=== PATIENT | male | born 1960 | race African-American/Black ===

== ENCOUNTER 2017-11-04 20:55 | Inpatient (IN) | payer MEDICARE, MEDICAID ==
[~2017-11-04] VITALS: Ht 193 cm; Wt 98.9 kg
[2017-11-04 19:30] VITALS: BP_SYST 147; BP_DIAS 59; BP_DIAS 69
[2017-11-04 20:00] VITALS: BP 147/59
[~2017-11-04 20:55] MED LIST: AZEL205. BOTHNSTRLS; BUDE6HFA INH; DIAZ10TA4 PO; DOXY100C2 PO; LIDO700A30 TP; METH10TA16 PO; MIRT-91 PO; OMEP20CA10 PO; OXYC30TA89 PO; TIZA6CAP7 PO; [UNRECOGNIZED DRUG - CODE] PO
[2017-11-04] MEDS ORDERED: BENZONATATE 100MG CAPSULE PO PRN (21:30)
[2017-11-04] MEDS ORDERED: IPRATROPIUM/ALBUTEROL 0.5-3(2.5)MG/3ML NEB HHN PRN (21:30)
[2017-11-04] MEDS ORDERED: ALPRAZOLAM 0.5 MG TABLET PO PRN (21:30)
[2017-11-04] MEDS ORDERED: LORAZEPAM 2MG/ML CPJ IV PRN (21:30)
[2017-11-04] MEDS: GABAPENTIN 100MG CAPSULE PO SCH (22:17)
[2017-11-04] MEDS: OXYCODONE HCL 5MG TABLET PO SCH (22:17)
[2017-11-04] MEDS: IPRATROPIUM/ALBUTEROL 0.5-3(2.5)MG/3ML NEB HHN SCH (22:30)
[2017-11-04] MEDS: TIZANIDINE HCL 4MG TABLET PO SCH (23:01)
[2017-11-05] MEDS: GABAPENTIN 100MG CAPSULE PO SCH ×3 (06:09→21:24)
[2017-11-05] MEDS: TIZANIDINE HCL 4MG TABLET PO SCH ×3 (06:10→21:23)
[2017-11-05] MEDS: BUDESONIDE 0.5MG/2ML NEB HHN SCH ×2 (07:21→21:06)
[2017-11-05] MEDS: IPRATROPIUM/ALBUTEROL 0.5-3(2.5)MG/3ML NEB HHN SCH ×3 (07:23→21:06)
[2017-11-05 08:30] VITALS: BP 123/84
[2017-11-05] MEDS: OXYCODONE HCL 5MG TABLET PO SCH ×4 (09:15→21:24)
[2017-11-05] MEDS: FAMOTIDINE 20MG TABLET PO SCH ×2 (09:16→21:25)
[2017-11-05] MEDS: METHYLPHENIDATE HCL 5MG TABLET PO SCH ×2 (09:18→17:15)
[2017-11-05] MEDS: DICLOFENAC SODIUM 50MG EC TABLET PO SCH (09:18)
[2017-11-05] MEDS: DOXYCYCLINE HYCLATE 100MG CAPSULE PO SCH ×2 (09:18→21:24)
[2017-11-05] MEDS ORDERED: BISACODYL 5MG TABLET PO PRN (13:45)
[2017-11-05] MEDS: LACTULOSE 20G/30ML UDC PO PRN (14:27)
[2017-11-05] MEDS: DOCUSATE SODIUM 100MG CAPSULE PO SCH ×2 (14:27→17:14)
[2017-11-05 20:00] VITALS: BP 150/96
[2017-11-06] MEDS: IPRATROPIUM/ALBUTEROL 0.5-3(2.5)MG/3ML NEB HHN SCH ×4 (02:26→21:15)
[2017-11-06] MEDS: TIZANIDINE HCL 4MG TABLET PO SCH ×3 (05:48→21:43)
[2017-11-06] MEDS: GABAPENTIN 100MG CAPSULE PO SCH ×3 (05:48→21:42)
[2017-11-06] MEDS: BUDESONIDE 0.5MG/2ML NEB HHN SCH ×2 (07:46→21:15)
[2017-11-06] MEDS: METHYLPHENIDATE HCL 5MG TABLET PO SCH ×2 (08:18→17:13)
[2017-11-06] MEDS: DOCUSATE SODIUM 100MG CAPSULE PO SCH ×2 (08:18→17:13)
[2017-11-06] MEDS: DOXYCYCLINE HYCLATE 100MG CAPSULE PO SCH ×2 (08:18→21:42)
[2017-11-06] MEDS: DICLOFENAC SODIUM 50MG EC TABLET PO SCH (08:18)
[2017-11-06] MEDS: FAMOTIDINE 20MG TABLET PO SCH ×2 (08:19→21:43)
[2017-11-06] MEDS: OXYCODONE HCL 5MG TABLET PO SCH ×4 (08:19→21:46)
[2017-11-06 08:29] VITALS: BP 123/84
[2017-11-06] MEDS ORDERED: BISACODYL 5MG TABLET PO PRN (10:45)
[2017-11-06] MEDS ORDERED: LACTULOSE 20G/30ML UDC PO PRN (10:45)
[2017-11-06] MEDS: MORPHINE SULFATE 4 MG/ML CPJ (NOT FOR IM USE) IV PRN (11:52)
[2017-11-06] MEDS ORDERED: SODIUM CHLORIDE 45ML SPRAY NS PRN (12:00)
[2017-11-06] MEDS ORDERED: LORAZEPAM 2MG/ML CPJ IV PRN (15:30)
[2017-11-06] MEDS: LACTULOSE 20G/30ML UDC PO PRN (17:14)
[2017-11-06 20:00] VITALS: BP 147/94
[2017-11-06] MEDS: ALPRAZOLAM 0.5 MG TABLET PO PRN (23:52)
[2017-11-07] MEDS: IPRATROPIUM/ALBUTEROL 0.5-3(2.5)MG/3ML NEB HHN SCH ×4 (01:08→21:02)
[2017-11-07] MEDS: TIZANIDINE HCL 4MG TABLET PO SCH ×3 (06:29→23:20)
[2017-11-07] MEDS: GABAPENTIN 100MG CAPSULE PO SCH ×3 (06:29→23:20)
[2017-11-07] MEDS: BUDESONIDE 0.5MG/2ML NEB HHN SCH ×2 (07:41→21:02)
[2017-11-07 08:00] VITALS: BP 124/84
[2017-11-07] MEDS: MORPHINE SULFATE 4 MG/ML CPJ (NOT FOR IM USE) IV PRN (08:28)
[2017-11-07 08:41] LABS: BASOPHILS % 0.8 % (0.0-2.0); EOSINOPHILS % 3.2 % (0.0-5.0); HEMATOCRIT. 44.6 % (42.0-52.0); HEMOGLOBIN. 15.2 g/dL (14.0-18.0); LYMPHOCYTES % 21.6 % (20.0-50.0); MEAN CORPUSCULAR HEMOGLOBIN 30.9 pg (28.0-32.0); MEAN PLATELET VOLUME 7.9 fl (7.4-10.4); NEUTROPHILS % 65.4 % (40.0-76.0); PLATELET 194 x1000/uL (130-400)
[2017-11-07 09:13] LABS: CHLORIDE 105 mEq/L (98-107)
[2017-11-07] MEDS: METHYLPHENIDATE HCL 5MG TABLET PO SCH ×2 (09:35→17:17)
[2017-11-07] MEDS: DOCUSATE SODIUM 100MG CAPSULE PO SCH ×2 (09:36→17:17)
[2017-11-07] MEDS: DICLOFENAC SODIUM 50MG EC TABLET PO SCH (09:36)
[2017-11-07] MEDS: FAMOTIDINE 20MG TABLET PO SCH ×2 (09:36→20:41)
[2017-11-07] MEDS: DOXYCYCLINE HYCLATE 100MG CAPSULE PO SCH ×2 (09:37→20:41)
[2017-11-07] MEDS: OXYCODONE HCL 5MG TABLET PO SCH ×4 (09:37→20:44)
[2017-11-07] MEDS: POLYETHYLENE GLYCOL 3350 (17GM) 1 DOSE PACK PO SCH (13:42)
[2017-11-07] MEDS ORDERED: LORAZEPAM 2MG/ML CPJ IV PRN (13:45)
[2017-11-07] MEDS ORDERED: FLUOXETINE HCL 10 MG CAPSULE PO SCH (13:45)
[2017-11-07 20:00] VITALS: BP 139/110
[2017-11-07] MEDS ORDERED: QUETIAPINE FUMARATE 25MG TABLET PO SCH (21:00)
[2017-11-08] MEDS: IPRATROPIUM/ALBUTEROL 0.5-3(2.5)MG/3ML NEB HHN SCH ×3 (02:15→13:17)
[2017-11-08] MEDS: TIZANIDINE HCL 4MG TABLET PO SCH ×2 (05:40→14:13)
[2017-11-08] MEDS: GABAPENTIN 100MG CAPSULE PO SCH ×2 (05:40→14:13)
[2017-11-08 08:00] VITALS: BP 136/101
[2017-11-08] MEDS: DOXYCYCLINE HYCLATE 100MG CAPSULE PO SCH (08:54)
[2017-11-08] MEDS: OXYCODONE HCL 5MG TABLET PO SCH ×2 (08:54→12:31)
[2017-11-08] MEDS: DOCUSATE SODIUM 100MG CAPSULE PO SCH (08:55)
[2017-11-08] MEDS: DICLOFENAC SODIUM 50MG EC TABLET PO SCH (08:55)
[2017-11-08] MEDS: FAMOTIDINE 20MG TABLET PO SCH (08:55)
[2017-11-08] MEDS: METHYLPHENIDATE HCL 5MG TABLET PO SCH (08:56)
[2017-11-08] MEDS: ALPRAZOLAM 0.5 MG TABLET PO PRN (08:57)
[2017-11-08] MEDS: POLYETHYLENE GLYCOL 3350 (17GM) 1 DOSE PACK PO SCH (08:57)
[2017-11-08 12:52] VITALS: BP 136/101
== END 2017-11-08 14:43 | disposition home health service (06) | DRG 947 ==
PROVIDERS: ADMIT Psychiatry & Neurology Neurology; ATTEND Internal Medicine Critical Care Medicine
DX: R53.81 Other malaise (principal); J96.01 Acute respiratory failure with hypoxia; F33.1 Major depressive disorder, recurrent, moderate; J44.9 Chronic obstructive pulmonary disease, unspecified; Z87.820 Personal history of traumatic brain injury; R26.9 Unspecified abnormalities of gait and mobility; M79.609 Pain in unspecified limb; K59.00 Constipation, unspecified; G47.00 Insomnia, unspecified; G89.4 Chronic pain syndrome; I10 Essential (primary) hypertension; G62.9 Polyneuropathy, unspecified; M79.7 Fibromyalgia; R47.1 Dysarthria and anarthria; J06.9 Acute upper respiratory infection, unspecified; J32.9 Chronic sinusitis, unspecified; R29.6 Repeated falls; R53.1 Weakness; J30.9 Allergic rhinitis, unspecified; F98.5 Adult onset fluency disorder; M54.31 Sciatica, right side; F41.9 Anxiety disorder, unspecified; M54.32 Sciatica, left side; Z88.6 Allergy status to analgesic agent; Z88.8 Allergy status to other drugs, medicaments and biological substances; Z91.018 Allergy to other foods; S06.9X0S Unspecified intracranial injury without loss of consciousness, sequela; V89.2XXS Person injured in unspecified motor-vehicle accident, traffic, sequela; Z79.899 Other long term (current) drug therapy; Z79.51 Long term (current) use of inhaled steroids
CPT/HCPCS: 36415; 80048; 85025; 92523; 93970; 94640; 97110; 97116; 97127; 97162; 97166; 97530; 97535; J2270; J7620; J7626

== ENCOUNTER → 2018-05-22 | Outpatient (CLI) | payer MEDICARE, MEDICAID ==
[~2018-05-22] MED LIST changes: -DIAZ10TA4 PO; -DOXY100C2 PO; -METH10TA16 PO
== END | disposition home or self-care (01) ==
LOC: CT 10:19
PROVIDERS: ATTEND Internal Medicine Critical Care Medicine
DX: K76.89 Other specified diseases of liver (principal)
CPT/HCPCS: 73030; 74176

== ENCOUNTER → 2018-10-01 | Outpatient (CLI) | payer MEDICARE, MEDICAID ==
[~2018-10-01] MED LIST changes: +BISA-81 PO; +BISA10SU8 RC; +CLOB15CR4 TP; +CYAN5000 IM; +DIAZ10TA PO; +DIAZ10TA4 PO; +DICL100T83 PO; +DOCU250C69 PO; +FLUT16SP15 NS; +MELA10TA PO; +MELA10TA2 PO; +MELO-106 PO; +METH10TA4 PO; +MORP10CA8 PO; -OMEP20CA10 PO; +OMEP20CA5 PO; +ONDA4TAB50 PO; +OXYC15TA88 PO; +PROM6.254 PO; +QUET25TA34 PO; -[UNRECOGNIZED DRUG - CODE] PO
[2018-10-01 12:08] LABS: BASOPHILS % 1.1 % (0.0-2.0); EOSINOPHILS % 3.1 % (0.0-5.0); HEMATOCRIT. 44.2 % (42.0-52.0); HEMOGLOBIN. 14.7 g/dL (14.0-18.0); LYMPHOCYTES % 15.1 % (20.0-50.0); MEAN CORPUSCULAR HEMOGLOBIN 30.8 pg (28.0-32.0); MEAN CORPUSCULAR VOLUME 92.5 fL (80.0-94.0); MEAN PLATELET VOLUME 7.6 fl (7.4-10.4); MONOCYTES % 6.4 % (2.0-8.0); NEUTROPHILS % 74.3 % (40.0-76.0); PLATELET 200 x1000/uL (130-400); RED BLOOD CELL COUNT 4.78 mill/uL (4.7-6.1); RED CELL DISTRIBUTION WIDTH 14.5 % (11.6-14.6)
[2018-10-01 12:16] LABS: CHLORIDE 108 mEq/L (98-107)
[2018-10-01 12:27] LABS: CLARITY URINE CLEAR (CLEAR); COLOR URINE YELLOW (YELLOW); KETONES URINE NEGATIVE (NEGATIVE); LEUKOCYTE ESTERASE URINE NEGATIVE (NEGATIVE); NITRITE URINE NEGATIVE (NEGATIVE); OCCULT BLOOD URINE NEGATIVE (NEGATIVE); PROTEIN URINE NEGATIVE (NEGATIVE); SPECIFIC GRAVITY URINE 1.015 (1.005-1.030); UROBILINOGEN URINE 0.2 E.U./dL (0.2-1.0)
[2018-10-01 12:50] LABS: PARTIAL THROMBOPLASTIN TIME 31.5 sec (23.4-31.0); PROTHROMBIN TIME 10.5 sec (9.6-11.0)
== END | disposition home or self-care (01) ==
LOC: LAB 11:28
PROVIDERS: ATTEND Internal Medicine Critical Care Medicine
DX: Z01.818 Encounter for other preprocedural examination (principal)
CPT/HCPCS: 36415

== ENCOUNTER 2018-10-02 05:26 | Day surgery (SDC) | payer MEDICARE, MEDICAID ==
[~2018-10-02] VITALS: Ht 182.9 cm; Wt 90.7 kg
[~2018-10-02 05:26] MED LIST changes: -DIAZ10TA PO; -MELO-106 PO
[2018-10-02] MEDS ORDERED: LACTATED RINGERS 1,000 ML IV SCH (05:30)
[2018-10-02] MEDS ORDERED: BUPIVACAINE HCL/PF 0.5% (5MG/ML) 10ML ONE ×2 (06:38→09:21)
[2018-10-02] MEDS ORDERED: BUPIVACAINE/EPINEPH/PF 0.25%/0.0005 10ML ONE (07:10)
[2018-10-02] MEDS ORDERED: EPINEPHRINE 1:1000 1 MG/ML AMP ONE (07:11)
[2018-10-02] MEDS ORDERED: PROPOFOL 200MG/20ML VIAL IV ONE ×2 (07:32→07:58)
[2018-10-02] MEDS ORDERED: MIDAZOLAM HCL 2 MG/2 ML VIAL ONE (07:32)
[2018-10-02] MEDS ORDERED: HYDROMORPHONE HCL/PF 2MG/ML (OR) ONE (07:34)
[2018-10-02] MEDS ORDERED: LIDOCAINE HCL/EPINEPHRINE 1%-EPI 1:100,000 20 ML VIAL ONE (07:35)
[2018-10-02] MEDS ORDERED: ROCURONIUM BROMIDE 10MG/ML VIAL 5ML IV ONE (07:55)
[2018-10-02] MEDS ORDERED: CEFAZOLIN SODIUM 1000MG/VIAL ONE (08:10)
[2018-10-02] MEDS ORDERED: PHENYLEPHRINE HCL 10 MG/ML 1ML (IV VIAL) IV ONE (08:15)
[2018-10-02] MEDS ORDERED: SODIUM CHLORIDE 0.9% 10ML VIAL ONE (08:15)
[2018-10-02] MEDS ORDERED: LIDOCAINE HCL/PF 1% 10 MG/ML 5ML VIAL ONE (08:21)
[2018-10-02] MEDS ORDERED: ONDANSETRON HCL 4MG/2ML INJ ONE (08:21)
[2018-10-02] MEDS ORDERED: DEXAMETHASONE 4MG/ML 1ML VIAL ONE (08:21)
[2018-10-02] MEDS ORDERED: NEOSTIGMINE METHYLSULFATE 1MG/ML 10 ML VIAL ONE (08:33)
[2018-10-02] MEDS ORDERED: GLYCOPYRROLATE 0.2 MG/ML 2ML VIAL ONE ×2 (08:33→08:46)
[2018-10-02] MEDS ORDERED: METOCLOPRAMIDE HCL 10MG/2ML VIAL ONE (08:36)
[2018-10-02] MEDS ORDERED: ONDANSETRON HCL 4MG/2ML INJ IV PRN (10:00)
[2018-10-02] MEDS ORDERED: TRIAMCINOLONE ACETONIDE 40MG/ML 1ML VIAL IM ONE (10:00)
[2018-10-02] MEDS ORDERED: MEPERIDINE HCL/PF 25MG/ML CPJ IV PRN (10:00)
[2018-10-02] MEDS ORDERED: LORAZEPAM 2MG/ML CPJ IV NR (10:00)
[2018-10-02] MEDS ORDERED: BUPIVACAINE HCL/PF 0.5% (5MG/ML) 10ML INFIL ONE (10:00)
[2018-10-02] MEDS ORDERED: LIDOCAINE HCL 1% 20ML VIAL (Pyxis) INJ INFIL ONE (10:00)
[2018-10-02] MEDS: HYDROMORPHONE HCL/PF 2MG/ML CPJ IV PRN ×2 (10:21→12:33)
[2018-10-02 12:33] VITALS: BP 145/76
== END 2018-10-02 14:00 | disposition home or self-care (01) ==
LOC: OR 05:26
DX: M75.102 Unspecified rotator cuff tear or rupture of left shoulder, not specified as traumatic (principal); F32.9 Major depressive disorder, single episode, unspecified; J44.9 Chronic obstructive pulmonary disease, unspecified; Z91.02 Food additives allergy status; Z88.8 Allergy status to other drugs, medicaments and biological substances; Z91.018 Allergy to other foods; G57.00 Lesion of sciatic nerve, unspecified lower limb; G47.00 Insomnia, unspecified; M65.812 Other synovitis and tenosynovitis, left shoulder
CPT/HCPCS: 29822; 29826; 29827; 88304; 88311; C1713; J0690; J1100; J1170; J2060; J2175; J2250; J2370; J2405; J2704; J2710; J2765; J3301; J3490; A4565; J0171

== ENCOUNTER 2018-12-01 10:17 | Inpatient (IN) | payer MEDICARE, MEDICAID ==
[~2018-12-01] VITALS: Ht 193 cm; Wt 90.7 kg
[2018-12-01] MEDS ORDERED: HYDROMORPHONE HCL/PF 2MG/ML CPJ IV ONE ×2 (11:00→12:45)
[2018-12-01 11:10] LABS: EOSINOPHILS % 3.4 % (0.0-5.0); HEMATOCRIT. 44.6 % (42.0-52.0); HEMOGLOBIN. 15.4 g/dL (14.0-18.0); LYMPHOCYTES % 18.1 % (20.0-50.0); MEAN CORPUSCULAR HEMOGLOBIN 31.6 pg (28.0-32.0); MEAN CORPUSCULAR VOLUME 91.6 fL (80.0-94.0); MEAN PLATELET VOLUME 7.7 fl (7.4-10.4); MONOCYTES % 9.1 % (2.0-8.0); NEUTROPHILS % 68.4 % (40.0-76.0); PLATELET 204 x1000/uL (130-400); RED BLOOD CELL COUNT 4.87 mill/uL (4.7-6.1); RED CELL DISTRIBUTION WIDTH 14.3 % (11.6-14.6)
[2018-12-01 11:16] LABS: CHLORIDE 108 mEq/L (98-107)
[2018-12-01] MEDS ORDERED: IPRATROPIUM/ALBUTEROL 0.5-3(2.5)MG/3ML NEB INH PRN (13:45)
[2018-12-01] MEDS ORDERED: HYDROMORPHONE HCL/PF 2MG/ML CPJ IV PRN (13:45)
[2018-12-01] MEDS ORDERED: ONDANSETRON HCL 4MG/2ML INJ IV PRN (13:45)
[2018-12-01] MEDS ORDERED: DIPHENHYDRAMINE 50MG/ML VIAL IV PRN (13:45)
[2018-12-01] MEDS ORDERED: MEPERIDINE HCL/PF 25MG/ML CPJ IV NR (14:30)
[2018-12-01 15:00] VITALS: BP 148/100
[2018-12-01 15:46] VITALS: BP 148/100
[2018-12-01] MEDS ORDERED: MELO-106 PO (16:04)
[2018-12-01] MEDS ORDERED: DIAZ10TA PO (16:04)
[2018-12-01] MEDS ORDERED: METHYLPHENIDATE HCL 5MG TABLET PO SCH (17:00)
[2018-12-01] MEDS: LIDOCAINE 5% PATCH TOP SCH (18:28)
[2018-12-01] MEDS: MEPERIDINE HCL/PF 25MG/ML CPJ IV PRN ×2 (18:33→22:54)
[2018-12-01 20:00] VITALS: BP 135/92
[2018-12-01] MEDS: DIAZEPAM 5 MG TABLET PO SCH (20:28)
[2018-12-01] MEDS: OXYCODONE HCL 10MG TABLET SR 12HR PO SCH (20:32)
[2018-12-01] MEDS: DICLOFENAC SODIUM 50MG EC TABLET PO SCH (20:33)
[2018-12-01] MEDS: MIRTAZAPINE 15MG TABLET PO SCH (20:34)
[2018-12-01] MEDS: TIZANIDINE HCL 2MG TABLET PO PRN (22:54)
[2018-12-02] VITALS: BP 131/96
[2018-12-02 04:00] VITALS: BP 151/94
[2018-12-02] MEDS: MEPERIDINE HCL/PF 25MG/ML CPJ IV PRN ×2 (04:50→11:11)
[2018-12-02] MEDS: OMEPRAZOLE 20MG CAPSULE EXTENDED RELEASE PO SCH (06:52)
[2018-12-02] MEDS: TIZANIDINE HCL 2MG TABLET PO PRN ×2 (06:52→15:09)
[2018-12-02 08:00] VITALS: BP 134/83
[2018-12-02] MEDS: LIDOCAINE 5% PATCH TOP SCH (09:01)
[2018-12-02] MEDS: DIAZEPAM 5 MG TABLET PO SCH ×2 (09:02→21:58)
[2018-12-02] MEDS: OXYCODONE HCL 10MG TABLET SR 12HR PO SCH (09:02)
[2018-12-02] MEDS: DICLOFENAC SODIUM 50MG EC TABLET PO SCH ×2 (09:02→21:58)
[2018-12-02 12:00] VITALS: BP 148/100
[2018-12-02] MEDS: HYDROCODONE/ACETAMINOPHEN 10/325MG TABLET PO PRN (15:15)
[2018-12-02 16:00] VITALS: BP 158/97
[2018-12-02] MEDS: HYDROMORPHONE HCL/PF 2MG/ML CPJ IV PRN (16:29)
[2018-12-02] MEDS: MIRTAZAPINE 15MG TABLET PO SCH (22:07)
[2018-12-03] VITALS (7 sets, daily range): BP systolic 140–153; BP diastolic 85–105
[2018-12-03] MEDS: OXYCODONE HCL 10MG TABLET SR 12HR PO SCH ×3 (00:13→21:26)
[2018-12-03] MEDS: HYDROMORPHONE HCL/PF 2MG/ML CPJ IV PRN ×2 (04:11→11:16)
[2018-12-03] MEDS: OMEPRAZOLE 20MG CAPSULE EXTENDED RELEASE PO SCH (06:40)
[2018-12-03] MEDS: DICLOFENAC SODIUM 50MG EC TABLET PO SCH ×2 (09:00→21:26)
[2018-12-03] MEDS: DIAZEPAM 5 MG TABLET PO SCH ×2 (09:00→21:27)
[2018-12-03] MEDS: LIDOCAINE 5% PATCH TOP SCH (09:01)
[2018-12-03] MEDS: HYDROCODONE/ACETAMINOPHEN 10/325MG TABLET PO PRN (09:09)
[2018-12-03] MEDS: METHYLPHENIDATE HCL 5MG TABLET PO SCH ×2 (13:17→21:27)
[2018-12-03] MEDS ORDERED: LIDOCAINE HCL/EPINEPHRINE 1%-EPI 1:100,000 30 ML VIAL INFIL NR (17:00)
[2018-12-03] MEDS ORDERED: ETHYL CHLORIDE CAN TOP NR (17:00)
[2018-12-03] MEDS ORDERED: TRIAMCINOLONE ACETONIDE 40MG/ML 1ML VIAL IM NR (17:00)
[2018-12-03] MEDS ORDERED: LIDOCAINE HCL/EPINEPHRINE 1%-EPI 1:100,000 20 ML VIAL IJ SCH (17:15)
[2018-12-03] MEDS: TIZANIDINE HCL 2MG TABLET PO PRN (17:51)
[2018-12-03] MEDS: MIRTAZAPINE 15MG TABLET PO SCH (21:27)
[2018-12-04] VITALS (8 sets, daily range): BP systolic 129–200; BP diastolic 85–109
[2018-12-04] MEDS ORDERED: CLONIDINE 0.1MG TABLET PO PRN
[2018-12-04] MEDS ORDERED: HYDRALAZINE 20MG/ML VIAL IV PRN (00:15)
[2018-12-04] MEDS: HYDROMORPHONE HCL/PF 2MG/ML CPJ IV PRN ×5 (00:30→19:59)
[2018-12-04] MEDS: HYDRALAZINE 10 MG in SODIUM CHLORIDE 0.9% 49.5 ML IV PRN (01:00)
[2018-12-04] MEDS: HYDROCODONE/ACETAMINOPHEN 10/325MG TABLET PO PRN ×2 (01:48→14:12)
[2018-12-04] MEDS: DIAZEPAM 5 MG TABLET PO SCH ×2 (08:03→20:03)
[2018-12-04] MEDS: FAMOTIDINE 20MG TABLET PO SCH ×2 (08:03→17:04)
[2018-12-04] MEDS: DOCUSATE SODIUM 100MG CAPSULE PO PRN (08:03)
[2018-12-04] MEDS: AMLODIPINE 5MG TABLET PO SCH (08:04)
[2018-12-04] MEDS: METHYLPHENIDATE HCL 5MG TABLET PO SCH ×2 (08:05→17:04)
[2018-12-04] MEDS: OXYCODONE HCL 10MG TABLET SR 12HR PO SCH ×2 (08:07→22:05)
[2018-12-04] MEDS: LIDOCAINE 5% PATCH TOP SCH (08:44)
[2018-12-04] MEDS: TIZANIDINE HCL 2MG TABLET PO PRN ×2 (08:44→22:11)
[2018-12-04] MEDS: DICLOFENAC SODIUM 50MG EC TABLET PO SCH ×2 (08:44→20:03)
[2018-12-04] MEDS: MIRTAZAPINE 15MG TABLET PO SCH (20:03)
[2018-12-05] VITALS (7 sets, daily range): BP systolic 132–171; BP diastolic 20–116
[2018-12-05] MEDS: HYDROMORPHONE HCL/PF 2MG/ML CPJ IV PRN ×7 (00:16→22:24)
[2018-12-05] MEDS: HYDRALAZINE 10 MG in SODIUM CHLORIDE 0.9% 49.5 ML IV PRN ×2 (00:16→20:28)
[2018-12-05 03:14] LABS: CLARITY URINE CLEAR (CLEAR); COLOR URINE YELLOW (YELLOW); KETONES URINE NEGATIVE (NEGATIVE); LEUKOCYTE ESTERASE URINE NEGATIVE (NEGATIVE); NITRITE URINE NEGATIVE (NEGATIVE); OCCULT BLOOD URINE NEGATIVE (NEGATIVE); PH URINE 6.5 (4.5-8.0); PROTEIN URINE NEGATIVE (NEGATIVE); SPECIFIC GRAVITY URINE 1.007 (1.005-1.030); UROBILINOGEN URINE 0.2 E.U./dL (0.2-1.0)
[2018-12-05 07:30] LABS: BASOPHILS % 0.4 % (0.0-2.0); EOSINOPHILS % 0.5 % (0.0-5.0); HEMATOCRIT. 48.4 % (42.0-52.0); HEMOGLOBIN. 16.5 g/dL (14.0-18.0); LYMPHOCYTES % 11.1 % (20.0-50.0); MEAN CORPUSCULAR HEMOGLOBIN 31.3 pg (28.0-32.0); MEAN CORPUSCULAR VOLUME 92.2 fL (80.0-94.0); MEAN PLATELET VOLUME 8.3 fl (7.4-10.4); MONOCYTES % 9.1 % (2.0-8.0); NEUTROPHILS % 78.9 % (40.0-76.0); PLATELET 216 x1000/uL (130-400); RED BLOOD CELL COUNT 5.25 mill/uL (4.7-6.1); RED CELL DISTRIBUTION WIDTH 13.8 % (11.6-14.6)
[2018-12-05 07:36] LABS: CHLORIDE 103 mEq/L (98-107)
[2018-12-05] MEDS: FAMOTIDINE 20MG TABLET PO SCH ×2 (08:32→16:34)
[2018-12-05] MEDS: METHYLPHENIDATE HCL 5MG TABLET PO SCH ×2 (08:32→16:34)
[2018-12-05] MEDS: DIAZEPAM 5 MG TABLET PO SCH ×2 (08:33→21:05)
[2018-12-05] MEDS: AMLODIPINE 5MG TABLET PO SCH (08:33)
[2018-12-05] MEDS: OXYCODONE HCL 10MG TABLET SR 12HR PO SCH ×2 (08:34→21:05)
[2018-12-05] MEDS: LIDOCAINE 5% PATCH TOP SCH (08:35)
[2018-12-05] MEDS: DICLOFENAC SODIUM 50MG EC TABLET PO SCH ×2 (09:21→21:17)
[2018-12-05] MEDS: DOCUSATE SODIUM 250MG CAPSULE PO SCH (11:31)
[2018-12-05] MEDS ORDERED: LACTULOSE 20G/30ML UDC PO SCH (15:30)
[2018-12-05] MEDS: BISACODYL 5MG TABLET PO PRN (18:13)
[2018-12-05] MEDS: MIRTAZAPINE 15MG TABLET PO SCH (21:05)
[2018-12-05] MEDS: PREGABALIN 25MG CAPSULE PO SCH (21:06)
[2018-12-06] VITALS: BP 171/101
[2018-12-06 00:30] VITALS: BP 140/100
[2018-12-06] MEDS: HYDROMORPHONE HCL/PF 2MG/ML CPJ IV PRN ×4 (01:35→15:55)
[2018-12-06 04:00] VITALS: BP 148/94
[2018-12-06] MEDS: TIZANIDINE HCL 2MG TABLET PO PRN (05:00)
[2018-12-06 08:00] VITALS: BP 145/95
[2018-12-06] MEDS: DICLOFENAC SODIUM 50MG EC TABLET PO SCH (08:08)
[2018-12-06] MEDS: LIDOCAINE 5% PATCH TOP SCH (08:08)
[2018-12-06] MEDS: DIAZEPAM 5 MG TABLET PO SCH (08:09)
[2018-12-06] MEDS: DOCUSATE SODIUM 250MG CAPSULE PO SCH (08:09)
[2018-12-06] MEDS: OXYCODONE HCL 10MG TABLET SR 12HR PO SCH (08:09)
[2018-12-06] MEDS: METHYLPHENIDATE HCL 5MG TABLET PO SCH (08:10)
[2018-12-06] MEDS: FAMOTIDINE 20MG TABLET PO SCH (08:10)
[2018-12-06] MEDS: PREGABALIN 25MG CAPSULE PO SCH (08:10)
[2018-12-06] MEDS: AMLODIPINE 5MG TABLET PO SCH (08:10)
[2018-12-06] MEDS: DOCUSATE SODIUM 100MG CAPSULE PO PRN (10:45)
[2018-12-06] MEDS: BISACODYL 5MG TABLET PO PRN (10:45)
[2018-12-06] MEDS: HYDROCODONE/ACETAMINOPHEN 10/325MG TABLET PO PRN (13:20)
[2018-12-06 13:52] VITALS: BP 142/90
[2018-12-06 15:55] VITALS: BP 142/90
== END 2018-12-06 16:35 | disposition home or self-care (01) | DRG 558 ==
LOC: ER 10:17 → 6EST 13:19 → ENRESERV 14:17
PROVIDERS: ADMIT Internal Medicine Critical Care Medicine; ATTEND Internal Medicine Critical Care Medicine
DX: M65.812 Other synovitis and tenosynovitis, left shoulder (principal); F11.20 Opioid dependence, uncomplicated; F32.9 Major depressive disorder, single episode, unspecified; F41.9 Anxiety disorder, unspecified; G47.00 Insomnia, unspecified; G57.00 Lesion of sciatic nerve, unspecified lower limb; G89.4 Chronic pain syndrome; J32.9 Chronic sinusitis, unspecified; J44.9 Chronic obstructive pulmonary disease, unspecified; Z87.820 Personal history of traumatic brain injury; I10 Essential (primary) hypertension; R45.84 Anhedonia; F98.5 Adult onset fluency disorder; Z88.1 Allergy status to other antibiotic agents; Z88.5 Allergy status to narcotic agent; Z91.018 Allergy to other foods; Z91.09 Other allergy status, other than to drugs and biological substances
CPT/HCPCS: 36415; 71045; 73030; 73221; 80048; 82962; 84484; 93005; 96374; 97163; 97166; 97535; 99285; C1893; J0360; J1170; J1200; J2175; J2405; J3301; J3490; J7040

== ENCOUNTER 2019-01-07 08:34 | Day surgery (SDC) | payer MEDICARE, MEDICAID ==
[~2019-01-07] VITALS: Ht 193 cm; Wt 93.0 kg
[~2019-01-07 08:34] MED LIST changes: -AZEL205. BOTHNSTRLS; -BISA-81 PO; -BISA10SU8 RC; +BUDE6.9H IH; -BUDE6HFA INH; -CLOB15CR4 TP; +CYAN10003 IM; -CYAN5000 IM; +DIAZ10TA PO; -DIAZ10TA4 PO; +DICL100G16 TP; -FLUT16SP15 NS; +LACT1CAP68 PO; -LIDO700A30 TP; +LYR25 PO; -MELA10TA PO; +MELO-106 PO; -MORP10CA8 PO; -ONDA4TAB50 PO; -PROM6.254 PO; -QUET25TA34 PO
[2019-01-07] MEDS ORDERED: SIMETHICONE 40 MG/0.6 ML 30ML ONE (09:17)
[2019-01-07] MEDS ORDERED: LACTATED RINGERS 1,000 ML IV SCH (09:30)
[2019-01-07] MEDS ORDERED: HYDROMORPHONE HCL/PF 2MG/ML (OR) ONE (10:34)
[2019-01-07] MEDS ORDERED: SODIUM CHLORIDE 0.9% 10ML VIAL ONE (10:35)
[2019-01-07] MEDS ORDERED: PROPOFOL 10MG/ML 100ML 100 ML IV ONE (10:43)
[2019-01-07] MEDS ORDERED: MIDAZOLAM HCL 2 MG/2 ML VIAL ONE (10:45)
[2019-01-07] MEDS ORDERED: LIDOCAINE HCL 1% 20ML VIAL (Pyxis) INJ ONE (10:54)
[2019-01-07] MEDS ORDERED: OXYCODONE HCL 20MG TABLET SR 12HR PO NR (12:15)
[2019-01-07 12:35] VITALS: BP 148/98
== END 2019-01-07 13:10 | disposition home or self-care (01) ==
LOC: OR 08:34
PROVIDERS: ATTEND Internal Medicine Gastroenterology
DX: K29.50 Unspecified chronic gastritis without bleeding (principal); K62.1 Rectal polyp; K63.5 Polyp of colon; K21.9 Gastro-esophageal reflux disease without esophagitis; G89.29 Other chronic pain; J45.909 Unspecified asthma, uncomplicated; Z79.899 Other long term (current) drug therapy; Z88.8 Allergy status to other drugs, medicaments and biological substances; Z98.890 Other specified postprocedural states; Z82.49 Family history of ischemic heart disease and other diseases of the circulatory system
CPT/HCPCS: 43239; 45380; 88305; 88312; 88313; 93005; J1170; J2250; J2704; J3490

== ENCOUNTER → 2019-04-02 | Outpatient (CLI) | payer MEDICARE, MEDICAID ==
[~2019-04-02] MED LIST changes: -DIAZ10TA PO; -OXYC15TA88 PO
== END | disposition home or self-care (01) ==
LOC: US 07:36
PROVIDERS: ATTEND Internal Medicine Critical Care Medicine
DX: K76.89 Other specified diseases of liver (principal)
CPT/HCPCS: 76700

== ENCOUNTER 2020-11-01 01:11 | Emergency (ER) | payer MEDICARE, MEDICAID ==
[~2020-11-01] VITALS: Ht 193 cm; Wt 105.0 kg
[~2020-11-01 01:11] MED LIST changes: +OMEP20CA14 PO; -OMEP20CA5 PO; +OXYC-582 PO; -OXYC30TA89 PO
[2020-11-01] MEDS ORDERED: ONDANSETRON 4MG ODT PO ONE (02:30)
[2020-11-01] MEDS ORDERED: SUMATRIPTAN SUCCINATE 6MG/0.5ML VIAL SUBCUT ONE (02:30)
[2020-11-01] MEDS ORDERED: TRAMADOL 50MG TABLET PO ONE (03:45)
[2020-11-01 06:25] VITALS: BP 126/79
== END 2020-11-01 06:31 | disposition home or self-care (01) ==
LOC: ER 01:11
DX: G44.009 Cluster headache syndrome, unspecified, not intractable (principal); I10 Essential (primary) hypertension; Z88.6 Allergy status to analgesic agent; Z88.8 Allergy status to other drugs, medicaments and biological substances; Z88.1 Allergy status to other antibiotic agents; Z91.018 Allergy to other foods; Z79.899 Other long term (current) drug therapy; Z98.890 Other specified postprocedural states
CPT/HCPCS: 70450; 96372; 99285; J3030; Q0162; 99284

== ENCOUNTER → 2021-05-22 | Outpatient (CLI) | payer MEDICARE, MEDICAID ==
[~2021-05-22] MED LIST changes: +MIRT-90 PO; -MIRT-91 PO
== END | disposition home or self-care (01) ==
LOC: RAD 15:43
PROVIDERS: ATTEND Internal Medicine Critical Care Medicine
DX: M25.552 Pain in left hip (principal); M54.9 Dorsalgia, unspecified
CPT/HCPCS: 72100; 73502

== ENCOUNTER → 2021-09-05 | Outpatient (CLI) | payer MEDICARE, MEDICAID | END | disposition home or self-care (01) | LOC: MRI 07:35 | PROVIDERS: ATTEND Internal Medicine Critical Care Medicine | DX: M50.123 Cervical disc disorder at C6-C7 level with radiculopathy (principal); M48.02 Spinal stenosis, cervical region; M67.813 Other specified disorders of tendon, right shoulder | CPT/HCPCS: 72141; 72146; 73221 ==

== ENCOUNTER 2022-07-02 15:34 | Emergency (ER) | payer MEDICARE, MEDICAID ==
[~2022-07-02] VITALS: Ht 193 cm; Wt 110.0 kg
[2022-07-02] MEDS ORDERED: KETOROLAC 30MG/ML VIAL IM ONE (22:00)
[2022-07-02 22:30] VITALS: BP 153/85
== END 2022-07-02 22:31 | disposition home or self-care (01) ==
LOC: ER 15:34
DX: S89.81XA Other specified injuries of right lower leg, initial encounter (principal); G43.909 Migraine, unspecified, not intractable, without status migrainosus; Z87.820 Personal history of traumatic brain injury; Z88.4 Allergy status to anesthetic agent; Z88.1 Allergy status to other antibiotic agents; Z91.018 Allergy to other foods; W01.0XXA Fall on same level from slipping, tripping and stumbling without subsequent striking against object, initial encounter; Y93.89 Activity, other specified; Y92.018 Other place in single-family (private) house as the place of occurrence of the external cause
CPT/HCPCS: 73502; 73562; 96372; 99284; J1885; L1830

== ENCOUNTER → 2022-07-06 | Outpatient (CLI) | payer MEDICARE, MEDICAID | END | disposition home or self-care (01) | LOC: MRI 09:00 | PROVIDERS: ATTEND Internal Medicine Critical Care Medicine | DX: M17.11 Unilateral primary osteoarthritis, right knee (principal); D16.21 Benign neoplasm of long bones of right lower limb | CPT/HCPCS: 72195; 73718 ==

== ENCOUNTER → 2022-08-29 | Outpatient (CLI) | payer MEDICARE, MEDICAID | END | disposition home or self-care (01) | LOC: RAD 13:53 | PROVIDERS: ATTEND Internal Medicine Critical Care Medicine | DX: M48.02 Spinal stenosis, cervical region (principal); M54.50 Low back pain, unspecified | CPT/HCPCS: 72040; 72070; 72100 ==

== ENCOUNTER → 2022-09-26 | Outpatient (CLI) | payer MEDICARE, MEDICAID | END | disposition home or self-care (01) | LOC: RAD 14:45 | PROVIDERS: ATTEND Internal Medicine Critical Care Medicine | DX: R04.2 Hemoptysis (principal) | CPT/HCPCS: 71046 ==

== ENCOUNTER → 2023-02-14 | Outpatient (CLI) | payer MEDICARE, MEDICAID ==
[2023-02-14 15:11] LABS: CHLORIDE 111 mEq/L (98-107); INDEX HEMOLYSI 1 (1-3); INDEX ICTERIC 1 (1-4); INDEX LIPEMIC 1 (1-3); POTASSIUM 4.1 mEq/L (3.5-5.1); SODIUM 139 mEq/L (136-145)
[2023-02-14 15:13] LABS: BASOPHILS % 0.6 % (0.0-2.0); EOSINOPHILS % 1.7 % (0.0-5.0); HEMATOCRIT. 45.4 % (42.0-52.0); HEMOGLOBIN. 14.8 g/dL (14.0-18.0); MEAN CORPUSCULAR HEMOGLOBIN 29.5 pg (28.0-32.0); MEAN CORPUSCULAR HGB CONC 32.7 g/dL (31.0-37.0); MEAN CORPUSCULAR VOLUME 90.4 fL (80.0-94.0); MEAN PLATELET VOLUME 7.5 fl (7.4-10.4); MONOCYTES % 8.9 % (2.0-8.0); NEUTROPHILS % 66.8 % (40.0-76.0); PLATELET 247 x1000/uL (130-400); RED BLOOD CELL COUNT 5.02 mill/uL (4.7-6.1); RED CELL DISTRIBUTION WIDTH 14.1 % (11.6-14.6); WHITE BLOOD COUNT 6.5 x1000/uL (4.5-11.0)
[2023-02-14 15:26] LABS: ALANINE AMINOTRANSFERASE 19 IU/L (13-61); ALBUMIN 3.5 g/dL (3.4-5.0); ASPARTATE AMINOTRANSFERASE 15 IU/L (15-37); BILIRUBIN TOTAL 0.2 mg/dL (0.1-1.0); CALCIUM 8.2 mg/dL (8.5-10.1); CARBON DIOXIDE 25 mEq/L (21-32); CREATININE 0.9 mg/dL (0.6-1.3); GLUCOSE 88 mg/dL (70-105); PROTEIN TOTAL 7.7 g/dL (6.0-8.3); UREA NITROGEN BLOOD 9 mg/dL (7-21)
== END | disposition home or self-care (01) ==
LOC: LAB 14:17
PROVIDERS: ATTEND Internal Medicine Critical Care Medicine
DX: D50.9 Iron deficiency anemia, unspecified (principal); E11.9 Type 2 diabetes mellitus without complications; E05.90 Thyrotoxicosis, unspecified without thyrotoxic crisis or storm
CPT/HCPCS: 36415; 80053; 83036; 84153; 84443; 85025; G0103

== ENCOUNTER → 2023-07-26 | Outpatient (CLI) | payer MEDICARE, MEDICAID | END | disposition home or self-care (01) | LOC: MAMMO 10:24 | PROVIDERS: ATTEND Internal Medicine Critical Care Medicine | DX: N63.10 Unspecified lump in the right breast, unspecified quadrant (principal); R92.1 Mammographic calcification found on diagnostic imaging of breast | CPT/HCPCS: 77062; 77066; G0279 ==

== ENCOUNTER → 2023-08-09 | Outpatient (CLI) | payer MEDICARE, MEDICAID | END | disposition home or self-care (01) | LOC: US 07:14 | PROVIDERS: ATTEND Internal Medicine Gastroenterology | DX: K76.89 Other specified diseases of liver (principal); N28.1 Cyst of kidney, acquired; E72.20 Disorder of urea cycle metabolism, unspecified | CPT/HCPCS: 76700 ==

== ENCOUNTER → 2023-08-26 | Outpatient (CLI) | payer MEDICARE, MEDICAID | END | disposition home or self-care (01) | LOC: RAD 11:13 | PROVIDERS: ATTEND Internal Medicine Critical Care Medicine | DX: M16.0 Bilateral primary osteoarthritis of hip (principal) | CPT/HCPCS: 73502 ==

== ENCOUNTER → 2023-11-07 | Outpatient (CLI) | payer MEDICARE, MEDICAID | END | disposition home or self-care (01) | LOC: CT 09:22 | PROVIDERS: ATTEND Internal Medicine Critical Care Medicine | DX: K76.89 Other specified diseases of liver (principal); Z98.890 Other specified postprocedural states | CPT/HCPCS: 72192; 73700; 74176 ==

== ENCOUNTER → 2023-12-11 | Outpatient (CLI) | payer MEDICARE, MEDICAID | END | disposition home or self-care (01) | LOC: MRI 12:02 | DX: S43.432A Superior glenoid labrum lesion of left shoulder, initial encounter (principal); M51.36 Other intervertebral disc degeneration, lumbar region; M16.12 Unilateral primary osteoarthritis, left hip; M51.37 Other intervertebral disc degeneration, lumbosacral region; M48.07 Spinal stenosis, lumbosacral region; M25.552 Pain in left hip; M54.50 Low back pain, unspecified; N40.0 Benign prostatic hyperplasia without lower urinary tract symptoms; X58.XXXA Exposure to other specified factors, initial encounter; Y93.89 Activity, other specified; Y92.89 Other specified places as the place of occurrence of the external cause | CPT/HCPCS: 72148; 72195 ==

== ENCOUNTER → 2024-01-23 | Outpatient (CLI) | payer MEDICARE, MEDICAID | END | disposition home or self-care (01) | LOC: US 09:33 | PROVIDERS: ATTEND Internal Medicine Critical Care Medicine | DX: R22.32 Localized swelling, mass and lump, left upper limb (principal) | CPT/HCPCS: 76881 ==

== ENCOUNTER → 2024-12-10 | Outpatient (CLI) | payer MEDICARE, MEDICAID ==
[~2024-12-10] MED LIST changes: -DICL100T83 PO; +DICL100T96 PO; +DOCU-405 PO; -DOCU250C69 PO
== END | disposition home or self-care (01) ==
LOC: MRI 09:14
PROVIDERS: ATTEND Internal Medicine Critical Care Medicine
DX: M94.262 Chondromalacia, left knee (principal); M25.462 Effusion, left knee; M25.562 Pain in left knee
CPT/HCPCS: 73721

== ENCOUNTER → 2024-12-15 | Outpatient (CLI) | payer MEDICARE, MEDICAID | END | disposition home or self-care (01) | LOC: RAD 13:42 | PROVIDERS: ATTEND Orthopaedic Surgery | DX: M17.11 Unilateral primary osteoarthritis, right knee (principal); M76.9 Unspecified enthesopathy, lower limb, excluding foot; M25.562 Pain in left knee; M25.561 Pain in right knee | CPT/HCPCS: 73562 ==

== ENCOUNTER → 2025-01-01 | Outpatient (CLI) | payer MEDICARE, MEDICAID | END | disposition home or self-care (01) | LOC: RAD 09:40 | PROVIDERS: ATTEND Orthopaedic Surgery | DX: M25.552 Pain in left hip (principal) | CPT/HCPCS: 73502 ==